=== PATIENT | male | born 1975 | race Caucasian/White ===

== ENCOUNTER 2022-08-18 11:23 | Inpatient (IN) | payer OTHER ==
[~2022-08-18] VITALS: Ht 167.6 cm; Wt 120.5 kg
[2022-08-18] VITALS (10 sets, daily range): BP systolic 138–194; BP diastolic 75–112
[2022-08-18 12:16] LABS: BASOPHILS % (AUTO) 0.7 % (0.0-2.0); HEMATOCRIT 44.9 % (41-53); HEMOGLOBIN 14.9 g/dL (13.5-17.5); LYMPHOCYTES # (AUTO) 1.2 K/uL (1.0-4.8); LYMPHOCYTES % (AUTO) 11.4 % (22.0-44.0); MEAN CORPUSCULAR HEMOGLOBIN 28.5 pg (26.0-34.0); MEAN CORPUSCULAR HGB CONC 33.2 G/dL (31.0-37.0); MEAN CORPUSCULAR VOLUME 86 fL (80-100); MONOCYTES # (AUTO) 0.7 K/uL (0.1-1.0); NEUTROPHILS # (AUTO) 8.6 K/uL (1.8-7.7); NEUTROPHILS % (AUTO) 79.9 % (40.0-70.0); PLATELET COUNT (AUTO) 218 K/uL (150-450); RED BLOOD CELL COUNT(AUTO) 5.23 MIL/uL (4.50-5.90); RED CELL DISTRIBUTION WIDTH 13.5 % (11.5-14.5)
[2022-08-18 12:19] LABS: ANION GAP 7 mmol/L (8-16); CALCIUM, TOTAL 9.4 mg/dL (8.8-10.5); CARBON DIOXIDE 27 mmol/L (22-29); CHLORIDE 104 mmol/L (98-107); CREATININE 0.61 mg/dL (0.60-1.30); GLOMERULAR FILTR. RATE CALC > 60 mL/min (>60); GLUCOSE,RANDOM 125 mg/dL (70-110); POTASSIUM 4.2 mmol/L (3.5-5.1); SODIUM SERUM 138 mmol/L (136-145); UREA NITROGEN, BLOOD 17 mg/dL (7-18)
[2022-08-18 12:23] LABS: PROTHROMBIN TIME 10.5 SEC (9.4-11.6)
[2022-08-18 12:25] LABS: ALANINE AMINOTRANSFERASE 61 U/L (12-78); ALBUMIN 3.9 g/dL (3.4-5.0); ALKALINE PHOSPHATASE 62 U/L (46-116); ASPARTATE AMINOTRANSFERASE 38 U/L (15-37); BILIRUBIN,TOTAL 0.7 mg/dL (0.1-1.0); CREATINE KINASE, TOTAL ONLY 134 U/L (39-308); TOTAL PROTEIN, SERUM 7.8 g/dL (6.4-8.2)
[2022-08-18 12:26] LABS: B-TYPE NATRIURETIC PEPTIDE 7 pg/mL (0-100)
[2022-08-18] MEDS ORDERED: NITROGLYCERIN 0.4 MG SUBLINGUAL TABLET #25 SL PRN (13:15)
[2022-08-18] MEDS: ASPIRIN 81 MG DR TABLET PO SCH (14:00)
[2022-08-18] MEDS: ATORVASTATIN CALCIUM 40 MG TABLET PO SCH (14:00)
[2022-08-18] MEDS ORDERED: SODIUM BICARBONATE 50 MEQ/50 ML VIAL ONE (14:12)
[2022-08-18] MEDS ORDERED: LIDOCAINE/PF 1% 30 ML VIAL ONE (14:12)
[2022-08-18] MEDS ORDERED: VERAPAMIL HCL 2.5 MG/ML 2 ML VIAL ONE (14:12)
[2022-08-18] MEDS ORDERED: IOHEXOL 300 MG/ML 100 ML VIAL ONE (14:12)
[2022-08-18] MEDS ORDERED: NITROGLYCERIN 50 MG/D5% WATER 250 ML ONE (14:12)
[2022-08-18] MEDS ORDERED: HEPARIN SODIUM 1000 UNITS/NS 1,000 ML ONE (14:13)
[2022-08-18] MEDS ORDERED: FentaNYL CITRATE PF 100 MCG/2 ML VIAL ONE (15:03)
[2022-08-18] MEDS ORDERED: MIDAZOLAM HCL 2 MG/2 ML VIAL ONE (15:03)
[2022-08-18] MEDS ORDERED: LIDOCAINE 1% 30 ML/SOD BICARB 8.4% 4 ML SQ ONE (15:15)
[2022-08-18] MEDS ORDERED: HEPARIN SODIUM 1000 UNITS/NS 1,000 ML IARTER ONE (15:15)
[2022-08-18] MEDS ORDERED: SODIUM CHLORIDE 0.9% 500 ML IV ONE (15:15)
[2022-08-18] MEDS ORDERED: IOHEXOL 300 MG/ML 100 ML VIAL ICOR ONE ×2 (15:15→16:00)
[2022-08-18] MEDS ORDERED: LABETALOL HCL 5 MG/ML 20 ML VIAL IVP ONE (15:23)
[2022-08-18] MEDS ORDERED: MORPHINE SULFATE 2 MG/ML SYRINGE IVP PRN ×2 (15:30→23:30)
[2022-08-18] MEDS ORDERED: HEPARIN SODIUM,PORCINE 1,000 UNITS/ML 10 ML VIAL IARTER ONE (15:30)
[2022-08-18] MEDS ORDERED: VERAPAMIL HCL 2.5 MG/ML 2 ML VIAL IARTER ONE (15:30)
[2022-08-18] MEDS ORDERED: MAGNESIUM HYDROXIDE SUSPENSION 30 ML UDCUP PO PRN (15:30)
[2022-08-18] MEDS ORDERED: ZOLPIDEM TARTRATE 5 MG TABLET PO PRN (15:30)
[2022-08-18] MEDS ORDERED: MIDAZOLAM HCL 2 MG/2 ML VIAL IVP ONE (15:30)
[2022-08-18] MEDS ORDERED: NITROGLYCERIN/D5W 50 MG/250 ML IV BOTTLE IARTER ONE (15:30)
[2022-08-18] MEDS ORDERED: FentaNYL CITRATE PF 100 MCG/2 ML VIAL IVP ONE (15:30)
[2022-08-18] MEDS ORDERED: BISACODYL 10 MG RECTAL RECTAL SUPPOSITORY PR PRN (15:30)
[2022-08-18] MEDS ORDERED: ONDANSETRON HCL 4 MG/2 ML VIAL IVP PRN (15:30)
[2022-08-18] MEDS ORDERED: ACETAMINOPHEN 325 MG TABLET PO PRN (15:30)
[2022-08-18] MEDS ORDERED: ADENOSINE 3 MG/ML 2 ML VIAL ONE (15:38)
[2022-08-18] MEDS ORDERED: HEPARIN SODIUM,PORCINE 1,000 UNITS/ML 10 ML VIAL IVP ONE ×2 (15:45→16:15)
[2022-08-18] MEDS ORDERED: ASPIRIN 81 MG CHEWABLE TABLET ONE (16:22)
[2022-08-18] MEDS ORDERED: TICAGRELOR 90 MG TABLET ONE (16:22)
[2022-08-18] MEDS ORDERED: ADENOSINE 3 MG/ML 2 ML VIAL IVP ONE (16:30)
[2022-08-18] MEDS ORDERED: SODIUM CHLORIDE 0.9% 1,000 ML IV ONE (16:45)
[2022-08-18] MEDS ORDERED: TICAGRELOR 90 MG TABLET PO ONE (16:45)
[2022-08-18] MEDS ORDERED: ASPIRIN 81 MG CHEWABLE TABLET PO ONE (16:45)
[2022-08-18] MEDS: HYDROCODONE/ACETAMINOPHEN 5-325 MG TABLET PO PRN (18:36)
[2022-08-18] MEDS: DOCUSATE SODIUM 100 MG CAPSULE PO SCH (20:19)
[2022-08-18] MEDS: METOPROLOL TARTRATE 25 MG TABLET PO SCH (20:19)
[2022-08-18] MEDS: AmLODIPine BESYLATE 5 MG TABLET PO SCH (20:19)
[2022-08-18] MEDS: TICAGRELOR 90 MG TABLET PO SCH (20:20)
[2022-08-19 00:11] VITALS: BP 138/83
[2022-08-19 05:34] VITALS: BP 128/80
[2022-08-19 07:15] LABS: BASOPHILS % (AUTO) 0.3 % (0.0-2.0); EOSINOPHILS % (AUTO) 1.8 % (1.0-6.0); HEMATOCRIT 38.9 % (41-53); HEMOGLOBIN 13.1 g/dL (13.5-17.5); LYMPHOCYTES # (AUTO) 1.5 K/uL (1.0-4.8); LYMPHOCYTES % (AUTO) 15.8 % (22.0-44.0); MEAN CORPUSCULAR HEMOGLOBIN 28.8 pg (26.0-34.0); MEAN CORPUSCULAR HGB CONC 33.6 G/dL (31.0-37.0); MEAN CORPUSCULAR VOLUME 86 fL (80-100); MONOCYTES % (AUTO) 10.4 % (2.0-9.0); NEUTROPHILS # (AUTO) 6.6 K/uL (1.8-7.7); NEUTROPHILS % (AUTO) 71.7 % (40.0-70.0); PLATELET COUNT (AUTO) 195 K/uL (150-450); RED BLOOD CELL COUNT(AUTO) 4.54 MIL/uL (4.50-5.90); RED CELL DISTRIBUTION WIDTH 13.2 % (11.5-14.5)
[2022-08-19 07:29] LABS: ANION GAP 9 mmol/L (8-16); CARBON DIOXIDE 26 mmol/L (22-29); CHLORIDE 106 mmol/L (98-107); CREATININE 0.51 mg/dL (0.60-1.30); GLOMERULAR FILTR. RATE CALC > 60 mL/min (>60); GLUCOSE,RANDOM 110 mg/dL (70-110); SODIUM SERUM 141 mmol/L (136-145); UREA NITROGEN, BLOOD 16 mg/dL (7-18)
[2022-08-19 07:54] VITALS: BP 144/83
[2022-08-19] MEDS: ASPIRIN 81 MG DR TABLET PO SCH (08:13)
[2022-08-19] MEDS: ATORVASTATIN CALCIUM 40 MG TABLET PO SCH (08:13)
[2022-08-19] MEDS: TICAGRELOR 90 MG TABLET PO SCH (08:13)
[2022-08-19] MEDS: DOCUSATE SODIUM 100 MG CAPSULE PO SCH (08:13)
[2022-08-19] MEDS: METOPROLOL TARTRATE 25 MG TABLET PO SCH (08:14)
[2022-08-19] MEDS: AmLODIPine BESYLATE 5 MG TABLET PO SCH (08:14)
[2022-08-19] MEDS: HYDROCODONE/ACETAMINOPHEN 5-325 MG TABLET PO PRN ×3 (08:14→16:15)
[2022-08-19] MEDS ORDERED: PANTOPRAZOLE SODIUM 40 MG DR TABLET PO SCH (09:00)
[2022-08-19] MEDS ORDERED: AMLO-257 PO (09:55)
[2022-08-19] MEDS ORDERED: TICA90TA PO (09:55)
[2022-08-19] MEDS ORDERED: ATOR40TA71 PO (09:55)
[2022-08-19] MEDS ORDERED: METO25 PO (09:55)
[2022-08-19] MEDS ORDERED: ASPI-1444 PO (09:55)
[2022-08-19 11:05] LABS: CHOL/HDL RATIO 3.6 (4.2-7.3)
[2022-08-19 11:42] VITALS: BP 137/85
[2022-08-19 15:26] VITALS: BP 135/73
== END 2022-08-19 17:25 | disposition home or self-care (01) | DRG 247 ==
LOC: EMS 11:24 → 5S 16:55
PROVIDERS: ADMIT Internal Medicine; ATTEND Internal Medicine
PROC: 4A023N7 Measurement of Cardiac Sampling and Pressure, Left Heart, Percutaneous Approach (ICD-10-PCS; principal; 2022-08-18)
PROC: 027034Z Dilation of Coronary Artery, One Artery with Drug-eluting Intraluminal Device, Percutaneous Approach (ICD-10-PCS; 2022-08-18)
PROC: B2111ZZ Fluoroscopy of Multiple Coronary Arteries using Low Osmolar Contrast (ICD-10-PCS; 2022-08-18)
PROC: 4A033BC Measurement of Arterial Pressure, Coronary, Percutaneous Approach (ICD-10-PCS; 2022-08-18)
DX: I21.4 Non-ST elevation (NSTEMI) myocardial infarction (principal); I10 Essential (primary) hypertension; F10.10 Alcohol abuse, uncomplicated; E66.3 Overweight; E11.65 Type 2 diabetes mellitus with hyperglycemia; Z68.36 Body mass index [BMI] 36.0-36.9, adult; Z79.02 Long term (current) use of antithrombotics/antiplatelets; Z79.82 Long term (current) use of aspirin; Z79.899 Other long term (current) drug therapy; Z82.49 Family history of ischemic heart disease and other diseases of the circulatory system; Z95.5 Presence of coronary angioplasty implant and graft
CPT/HCPCS: 0501T; 71045; 80048; 80053; 80061; 82550; 83880; 84484; 85025; 85610; 85730; 92920; 92928; 93005; 93306; 99285; J0153; J1644; J2250; J3010; J3490; J7030; Q9967; 36415-L1; 36415-TC; Z7610